=== PATIENT | male | born 1980 | race African-American/Black ===

== ENCOUNTER → 2020-01-30 | Emergency (ER) | payer OTHER ==
[~2020-01-30] VITALS: Ht 175.3 cm; Wt 114.8 kg
[~2020-01-30] MED LIST: FAMOTIDINE (10MG/ML) 2ML VL IV ONE; FAMOTIDINE 20 MG TAB PO ONE; SODIUM CHLORIDE 0.9% 1,000 ML IVB ONE; diphenhdrAMINE HCL 50 MG/1 ML VL IV ONE; diphenhdrAMINE HCL 50 MG/1 ML VL ONE; methylPREDNISolone SOD SUCC 125 MG/2 ML VL IV ONE; methylPREDNISolone SOD SUCC 125 MG/2 ML VL ONE
[2020-01-30 11:59] LABS: Basophils # (auto) 0 10 ^3/uL (0-0.2); Basophils % (auto) 0.5 % (0.0-2.0); Eosinophils # (auto) 0 10 ^3/uL (0-0.8); Eosinophils % (auto) 0.2 % (0.0-7.0); Hemoglobin 17.4 g/dL (13.5-17.5); Lymphocytes % (auto) 37.6 % (10.0-50.0); Mean Corpuscular Hemoglobin 29.1 pg (28.0-32.0); Mean Corpuscular Hgb Conc. 31.7 g/dL (32.0-36.0); Mean Corpuscular Volume 91.7 fL (80.0-100.0); Monocytes # (auto) 0.5 10 ^3/uL (0-1.3); Monocytes % (auto) 5.6 % (0.0-12.0); Neutrophils # (auto) 4.5 10 ^3/uL (1.6-8.6); Neutrophils % (auto) 56.1 % (37.0-80.0); Nucleated Red Blood Cells % 0.3 %; Platelet Count (auto) 335 10^3/uL (140-450); Red Blood Cells 5.99 10^6/uL (4.5-5.90); White Blood Cell 8.1 10^3/uL (4.4-10.8)
[2020-01-30 12:18] LABS: Albumin 4.1 g/dL (3.4-5.0); Calcium 8.9 mg/dL (8.5-10.1); Magnesium 2.5 mg/dL (1.6-2.6); Potassium 4.3 mmol/L (3.5-5.1)
[2020-01-30 12:22] LABS: INR 1.04 (0.9-1.15); Partial Thromboplastin Time 24.5 sec (23.0-31.2)
[2020-01-30 12:27] LABS: BUN/Creatinine Ratio 12.1; Bilirubin, Total 0.4 mg/dL (0.2-1.0)
[2020-01-30 15:02] VITALS: BP 110/71
== END | disposition home or self-care (01) ==
LOC: ER 11:00
DX: T78.1XXA Other adverse food reactions, not elsewhere classified, initial encounter (principal); J45.909 Unspecified asthma, uncomplicated; F17.210 Nicotine dependence, cigarettes, uncomplicated
CPT/HCPCS: 36415; 71045; 80053; 83735; 85025; 85610; 85730; 99285; J1200; J2930; J3490